=== PATIENT | male | born 1965 | race Caucasian/White ===

== ENCOUNTER 2023-03-01 00:37 | Emergency (ER) | payer OTHER ==
[~2023-03-01] VITALS: Ht 175.3 cm; Wt 65.9 kg
[2023-03-01 01:01] VITALS: BP 144/89; PULSE 72; TEMP 99.1; O2SAT 100
[2023-03-01] MEDS ORDERED: IBUP-1984 PO (02:05)
[2023-03-01] MEDS ORDERED: BACI1PAC7 TP (02:05)
[2023-03-01] MEDS ORDERED: HYDR-3965 PO (02:05)
[2023-03-01 02:19] VITALS: RESP 16
[2023-03-01] MEDS: ketorolac trometh inj. 60 MG/2 ML VIAL IM ONE (02:19)
[2023-03-01] MEDS: bacitracin 15gm ointment TP ONE (02:19)
== END 2023-03-01 02:22 | disposition home or self-care (01) ==
LOC: ER 00:38
DX: S53.492A Other sprain of left elbow, initial encounter (principal); Z91.040 Latex allergy status; Y08.89XA Assault by other specified means, initial encounter; Y93.89 Activity, other specified; Y92.89 Other specified places as the place of occurrence of the external cause; Y99.8 Other external cause status
CPT/HCPCS: 73080; 96372; 99283; J1885; A4565; A6258